=== PATIENT | male | born 1985 | race Two or more races ===

== ENCOUNTER 2017-11-11 16:21 | Emergency (ER) | payer OTHER ==
[~2017-11-11] VITALS: Ht 190.5 cm; Wt 77.1 kg
[2017-11-11 16:52] VITALS: BP 145/86
--- NOTE | 2017-11-11 17:12 | ER.PDOC ---
General Chief Complaint: Cough/Congestion Stated Complaint: COUGH,CONGESTION Time seen by MD: 17:09 Source: patient Exam Limitations: no limitations History of Present Illness Initial Comments Cough and congestion for 4 days Timing/Duration: gradual Severity: moderate Associated Symptoms: runny nose, cough Constitutional: no symptoms reported EENTM: see HPI Respiratory: see HPI Cardiovascular: no symptoms reported Gastrointestinal: no symptoms reported All Other Systems: Reviewed and Negative Past Medical History Medical History: no pertinent history Social History Smoking: less than 1 pack/day Alcohol Use: occassionally Drug Use: none, marijuana Physical Exam General Appearance: alert, no distress Nose: rhinorrhea Throat: pharynx nml, airway nml Neck: nml inspection, supple Respiratory: no resp.distress, breath sounds nml Abdomen: non-tender, no organomegaly CVS: reg rate & rhythm, heart sounds nml Skin: color nml, no rash, warm/dry Extremities: non-tender, nml ROM, no pedal edema NEURO/PSYCH: oriented x 3, CN's nml as tested, motor nml, sensation nml, mood/ affect nml Departure Time of Disposition: 17:10 Disposition: 01 HOME, SELF-CARE Impression: Primary Impression: Acute URI Condition: Stable Referrals: PCP,UNKNOWN (PCP) PRIMARY CARE PROVIDER Additional Instructions: Mucinex DM OTC as directed Afrin nose drops OTC as directed for 5 days F/U with your PCP next week Duration or Time Spent with Pa: 20 mins YONY GLORIA MD Nov 11, 2017 17:12
[2017-11-11 17:18] VITALS: BP 141/95
[2017-11-11 17:20] VITALS: BP 145/86
== END 2017-11-11 17:20 | disposition home or self-care (01) ==
LOC: ER 16:21
DX: J06.9 Acute upper respiratory infection, unspecified (principal); F17.200 Nicotine dependence, unspecified, uncomplicated; F12.10 Cannabis abuse, uncomplicated
CPT/HCPCS: 99282